=== PATIENT | male | born 1955 | race Caucasian/White ===

== ENCOUNTER 2025-02-16 18:31 | Emergency (ER) | payer OTHER, MEDICAID ==
[~2025-02-16] VITALS: Ht 172.7 cm; Wt 73.0 kg
[2025-02-16] MEDS ORDERED: ONDANSETRON HCL/PF 4 MG/2 ML VIAL ONE (19:01)
[2025-02-16] MEDS: IV NS 0.9% 1,000 ML BAG IV ONE (19:15)
[2025-02-16] MEDS: ONDANSETRON HCL/PF - ER 4 MG/2 ML VIAL IV ONE (19:19)
[2025-02-16 19:42] LABS: BASOPHILS % (AUTO) 0.2 % (0.0-2.0); EOSINOPHILS % (AUTO) 0.2 % (0.0-6.0); HEMATOCRIT 22 % (39-51); HEMOGLOBIN 7.3 g/dL (13.5-17.5); LYMPHOCYTES # (AUTO) 0.8 K/uL (0.8-4.8); LYMPHOCYTES % (AUTO) 7.3 % (20.0-44.0); MEAN CORPUSCULAR HEMOGLOBIN 30 PG (26.0-33.0); MEAN CORPUSCULAR HGB CONC 34 g/dl (31.0-36.0); MEAN CORPUSCULAR VOLUME 86 fL (80-96); MONOCYTES # (AUTO) 1.3 K/uL (0.1-1.30); MONOCYTES % (AUTO) 12.2 % (2.0-12.0); NEUTROPHILS # (AUTO) 8.3 K/uL (1.8-8.9); NEUTROPHILS % (AUTO) 80.1 % (43.0-81.0); PLATELET COUNT (AUTO) 335 K/uL (150-450); RED BLOOD CELL COUNT(AUTO) 2.48 MIL/uL (4.5-6.0); RED CELL DISTRIBUTION WIDTH 14.2 % (11.5-15.0); WHITE BLOOD COUNT (AUTO) 10.4 K/uL (4.3-11.0)
[2025-02-16] MEDS: AZTREONAM 2 G in IV NS 0.9% 100 ML IV ONE (19:50)
[2025-02-16 19:56] LABS: INR 1.13 (0.91-1.10); PROTHROMBIN TIME 11.9 SECS (9.2-11.1)
[2025-02-16 19:57] LABS: CALCIUM, SERUM 8.1 mg/dL (8.5-10.1); CARBON DIOXIDE 27 mmol/L (21-32); CHLORIDE 95 mmol/L (98-107); CREATININE 5.7 mg/dL (0.6-1.3); GLUCOSE 116 mg/dL (74-106); LACTIC ACID 1.1 mmol/L (0.4-2.0); POTASSIUM 3.6 mmol/L (3.5-5.1); SODIUM SERUM 135 mmol/L (136-145)
[2025-02-16 20:06] LABS: ALANINE AMINOTRANSFERASE 95 U/L (12-78); ALBUMIN 1.8 g/dL (3.4-5.0); ALKALINE PHOSPHATASE 94 U/L (46-116); ASPARTATE AMINOTRANSFERASE 98 U/L (15-37); BILIRUBIN,DIRECT 0.1 mg/dL (0.0-0.2); BILIRUBIN,TOTAL 0.3 mg/dL (0.2-1.0); TOTAL PROTEIN, SERUM 7.5 g/dL (6.4-8.2)
[2025-02-16 20:07] LABS: UREA NITROGEN, BLOOD 105 mg/dL (7-18)
[2025-02-16 20:11] LABS: LIPASE 86 U/L (16-77); NT-PRO BNP 4944 pg/mL (0-125)
[2025-02-16 20:13] LABS: APPEARANCE,URINE CLOUDY (CLEAR); COLOR,URINE YELLOW (YELLOW)
[2025-02-16 20:15] LABS: LEUKOCYTE ESTERASE ,URINE LARGE (NEGATIVE); NITRITE, URINE NEGATIVE (NEGATIVE); UROBILINOGEN,URINE 0.2 EU/dL (0.2)
[2025-02-16 20:17] LABS: BILIRUBIN,URINE NEGATIVE (NEGATIVE); BLOOD, URINE 2+ Ery/uL (NEGATIVE); PROTEIN,URINE 2+ mg/dl (NEGATIVE); UGLUCOSE NEGATIVE (NEGATIVE)
[2025-02-16 20:18] LABS: KETONES,URINE NEGATIVE (NEGATIVE)
[2025-02-16 20:21] LABS: ADD URINE CULTURE YES; BACTERIA,URINE Few /HPF (None Seen); HYALINE CASTS, URINE Few /LPF (None Seen); SQUAMOUS EPITHELIAL CELL,UR Rare /HPF (None Seen); URINE AMORPHOUS PHOSPHATES Moderate /HPF (None Seen); WBC,URINE 21-50 /HPF (0-3)
[2025-02-16] MEDS: VANCOMYCIN 1 GM in IV D5W 250 ML IV ONE (20:40)
[2025-02-16] MEDS ORDERED: ACETAMINOPHEN ES 500 MG TABLET ONE (21:04)
[2025-02-16] MEDS: ACETAMINOPHEN ES 500 MG TABLET PO ONE (21:10)
[2025-02-16 23:15] VITALS: TEMP 99.5
[2025-02-17 01:00] VITALS: BP 103/51; O2SAT 95
[2025-02-17] MEDS: IV NS 0.9% 1,000 ML BAG IV ONE (01:31)
== END 2025-02-17 05:28 | disposition short-term general hospital (02) ==
LOC: ER 18:45
DX: A41.9 Sepsis, unspecified organism (principal); N12 Tubulo-interstitial nephritis, not specified as acute or chronic; R33.9 Retention of urine, unspecified; N17.9 Acute kidney failure, unspecified; I10 Essential (primary) hypertension; N40.1 Benign prostatic hyperplasia with lower urinary tract symptoms; Z88.1 Allergy status to other antibiotic agents
CPT/HCPCS: 99291; 74176; 96365; 71045; 96367; 96361 ×2; 96375; 99292; 51702; 84145; 85025; 80048; 87040 ×2; 83605; 83690; 80076; 81001; 36415; 84484; 85730; 83880; 93005; J3490; J3370; J2405 ×2; J7030 ×3; J7040; 87086-TC; J7060